=== PATIENT | female | born 1965 | race African-American/Black ===

== ENCOUNTER 2019-01-20 14:45 | Emergency (ER) | payer MEDICAID ==
[~2019-01-20] VITALS: Ht 167.6 cm; Wt 54.0 kg
[2019-01-20 15:49] LABS: BASOPHILS 1.1 % (0.0-2.0); EOSINOPHILS 2.1 % (0.0-3.0); HEMATOCRIT 38.5 % (37.0-47.0); HEMOGLOBIN 12.4 gm/dL (12.0-15.0); LYMPHOCYTES 43.1 % (24.0-44.0); MCH 26.2 pg (26.0-34.0); MCHC 32.2 g/dL (28.0-37.0); MCV 81.6 fL (80.0-100.0); MONOCYTES 8.3 % (1.0-8.0); PLATELET COUNT 261 thou/uL (150-400); POLYS 45.4 % (36.0-66.0); RBC 4.72 mil/uL (4.20-5.00); RDW 14.9 % (10.5-14.5); WBC 4.5 thou/uL (4.0-11.0)
[2019-01-20 16:01] LABS: CALCIUM 9.8 mg/dL (8.5-10.1); CREATININE 0.8 mg/dL (0.6-1.0); POTASSIUM 3.7 mmol/L (3.5-5.1)
[2019-01-20 16:05] LABS: ALBUMIN 3.6 g/dL (3.4-5.0); TOTAL BILIRUBIN 0.6 mg/dL (<0.1-1.0); TOTAL PROTEIN 7.9 g/dL (6.4-8.2)
[2019-01-20 17:26] LABS: URINE BILIRUBIN NEGATIVE (Negative); URINE BLOOD TRACE (Negative); URINE CLARITY CLEAR; URINE COLOR YELLOW; URINE GLUCOSE-RANDOM* NEGATIVE (Negative); URINE KETONES NEGATIVE (Negative); URINE LEUKOCYTES-REFLEX NEGATIVE (Negative); URINE NITRITE-REFLEX NEGATIVE (Negative); URINE PROTEIN (DIPSTICK) NEGATIVE (Negative); URINE SPECIFIC GRAVITY >= 1.030 (1.005-1.035); URINE UROBILINOGEN 0.2 E.U./dl (0.2-1.0)
[2019-01-20 21:14] VITALS: BP 119/78
== END 2019-01-20 21:15 ==
LOC: ER 14:45
PROVIDERS: Physician Assistant
DX: F03.90 Unspecified dementia, unspecified severity, without behavioral disturbance, psychotic disturbance, mood disturbance, and anxiety (principal); I10 Essential (primary) hypertension; G40.909 Epilepsy, unspecified, not intractable, without status epilepticus; Z88.8 Allergy status to other drugs, medicaments and biological substances